=== PATIENT | male | born 1980 | race Caucasian/White ===

== ENCOUNTER 2021-10-05 12:53 | Emergency (ER) | payer OTHER ==
[~2021-10-05] VITALS: Ht 167.6 cm; Wt 80.0 kg
[2021-10-05 15:41] LABS: BASOPHILS % 0.4 % (0.0-2.0); EOSINOPHILS % 0.2 % (0.0-5.0); HEMATOCRIT. 45.9 % (42.0-52.0); HEMOGLOBIN. 15.7 g/dL (14.0-18.0); LYMPHOCYTES % 19.6 % (20.0-50.0); MEAN CORPUSCULAR HEMOGLOBIN 30.9 pg (28.0-32.0); MEAN PLATELET VOLUME 7.7 fl (7.4-10.4); MONOCYTES % 4.8 % (2.0-8.0); PLATELET 336 x1000/uL (130-400); RED CELL DISTRIBUTION WIDTH 13.6 % (11.6-14.6)
[2021-10-05 15:57] LABS: CHLORIDE 107 mEq/L (98-107)
[2021-10-05 16:32] LABS: PROTHROMBIN TIME 10.6 sec (9.6-11.0)
[2021-10-05 23:55] VITALS: BP 124/71
== END 2021-10-06 00:07 | disposition short-term general hospital (02) ==
LOC: ER 12:53 → EDBEDREQ 19:53 → ER 10-06 00:07 → CANBEDREQ 10-06 00:25
DX: Z03.821 Encounter for observation for suspected ingested foreign body ruled out (principal); X58.XXXA Exposure to other specified factors, initial encounter; Y93.89 Activity, other specified; Y92.9 Unspecified place or not applicable; Z20.822 Contact with and (suspected) exposure to COVID-19
CPT/HCPCS: 36415; 70360; 71045; 74018; 80053; 85025; 87426; 99285